=== PATIENT | male | born 1955 | race Caucasian/White ===

== ENCOUNTER 2018-10-21 17:06 | Emergency (ER) | payer OTHER ==
[2018-10-21 17:24] VITALS: BP 127/78
--- NOTE | 2018-10-21 19:18 | UC ---
Skin Complaint HPI - HPI Summary HPI Summary: Patient presents requesting evaluation of a wound on his right anterior lower leg. Patient states approximately 10 days ago he scraped it on something his garage. Patient states the wound does not seem to be healing. Patient states this morning he looked at it and appeared to be black. Patient decided he should get checked. Patient states denies any pain. No drainage. No fevers or chills. Patient does have a history of diabetes. Patient denies any swelling of the legs. Patient states he is consider he has an infection. Pt has not been covering or treating the wound. Suddenly, patient has been look at a wound on his left low back. Patient states he's had this for approximately 2 months. Patient states he gets very itchy dry and scaly. Patient states he scratches it and it's better for about a week when he gets worse again. Patient denies any bleeding. No trauma. Patient's to states at times it itches. Patient has not shown his doctor. Patient states his tetanus is up-to-date he believes causes "doctor's good " Pt's medication reviewed this visit - History of Current Complaint Chief Complaint: UCSkin Time Seen by Provider: 10/21/18 19:04 Stated Complaint: RIGHT LEG CONCERN Pain Intensity: 0 - Allergy/Home Medications Allergies/Adverse Reactions: Allergies Allergy/AdvReac Type Severity Reaction Status Date / Time cephalexin Allergy Nausea Verified 10/21/18 17:25 ciprofloxacin Allergy See Comment Verified 10/21/18 17:25 Home Medications: Home Medications Atorvastatin* [Lipitor*] 40 mg PO QPM 10/21/18 [History Confirmed 10/21/18] PMH/Surg Hx/FS Hx/Imm Hx Previously Healthy: No Endocrine History: Diabetes Cardiovascular History: Hypertension - Surgical History Surgical History: Yes Surgery Procedure, Year, and Place: Ankle ~1979 @[facility] RIGHT - Family History Known Family History: Positive: Hypertension, Diabetes, Non-Contributory - Social History Occupation: Employed Full-time Lives: With Family Alcohol Use: None Substance Use Type: None Smoking Status (MU): Former Smoker Type: Cigarettes Amount Used/How Often: 1 1/2 ppd Length of Time of Smoking/Using Tobacco: 30 yrs Have You Smoked in the Last Year: No When Did the Patient Quit Smoking/Using Tobacco: 15 yrs ago - Immunization History Most Recent Influenza Vaccination: Not the season Review of Systems All Other Systems Reviewed And Are Negative: Yes Constitutional: Negative: Fever, Fatigue Skin: Positive: Rash - RLE, left back Physical Exam - Summary Physical Exam Summary: Vital Signs Reviewed: Yes A+Ox3, no distress Eyes: Conjunctiva Clear ENT: Hearing grossly normal neck: supple Respiratory: Positive: No respiratory distress, No accessory muscle use Cardiovascular: skin color reflect adequate perfusion Musculoskeletal Exam: + SLE +flex.ext knee, ankle No edema Neurological: Positive: Alert, ambulatory without difficulty Psychological: Positive: Normal Response To Family Skin: Positive: RLE - pt with quarter size lesion, scabbed - appearance of pant link stuck to wound. no crepitus. No induration, fluctuance. mild erythema around wound left low back mid scapular line pt with 1.5 cm circular, dry, raised area concerning for tinea. red base, dry flaky skin, non tender, no fluctuance Triage Information Reviewed: Yes Vital Signs: Initial Vital Signs Temp 97.9 F 10/21/18 17:18 Pulse 70 10/21/18 17:18 Resp 16 10/21/18 17:18 BP 127/78 10/21/18 17:18 Pulse Ox 100 10/21/18 17:18 Re-Evaluation - Re-Evaluation First Eval Comment: wound cleansed removed cloth fiber -. covered with abx ointment, bandage. docxy. for back Rx clotrimazole. pcp recheck. return precautions Course/Dx - Course Course Of Treatment: Patient with wound to his right lower extremity anterior distal izaguirre. Patient with a history of diabetes. Patient concerned it was black in appearance. On examination appears may be some lint from his penis. Requested we'll cleanse by RN we'll reassess. Anticipate local wound care and short course of antibiotics given patient's a diabetic and wound has been present for 10 days. Patient also with a rash on his left back. This appears to be consistent with tinea. We'll prescribe patient a fungal topical ointment for that. Patient thinks his tetanus is up-to-date we'll check with PCP. Strict return precautions. Patient comfortable in agreement with plan. - Diagnoses Provider Diagnosis: Abrasion, Tinea corporis Discharge - Sign-Out/Discharge Documenting (check all that apply): Patient Departure All imaging exams completed and their final reports reviewed: No Studies - Discharge Plan Condition: Stable Disposition: HOME Prescriptions: Clotrimazole 1% CREAM* [Clotrimazole 1%*] 1 applic TOPICAL BID #1 tube DOXYcycline CAP(*) [DOXYcycline 100MG CAP(*)] 100 mg PO BID #20 cap Patient Education Materials: Tinea Corporis (ED), Acute Wound Care (ED) Referrals: Lana Alexander MD [Primary Care Provider] - Additional Instructions: For your leg: - take antibiotics as prescribed until gone - cover your wound with a thin layer of antibiotic ointment (ploysporin, neosporin) and a bandaid to prevent it from rubbing on your pant - okay to gently wash with warm, soap water daily. Dry completely before bandaging - contact your doctor to schedule a follow-up appointment, wound check this week for your backL Apply ointment 2 times a day as prescribed - try not to scratch or pick this wound - Billing Disposition and Condition Condition: STABLE Disposition: Home
== END 2018-10-21 19:54 | disposition home or self-care (01) ==
LOC: UCCORT 17:06
DX: Z88.1 Allergy status to other antibiotic agents (principal); S80.811A Abrasion, right lower leg, initial encounter; W22.8XXA Striking against or struck by other objects, initial encounter; Y92.008 Other place in unspecified non-institutional (private) residence as the place of occurrence of the external cause; B35.4 Tinea corporis
CPT/HCPCS: 99212; G0463